=== PATIENT | male | born 1980 | race Caucasian/White ===

== ENCOUNTER 2017-01-27 08:50 | Emergency (ER) | payer OTHER ==
[~2017-01-27] VITALS: Ht 182.9 cm; Wt 113.4 kg
[2017-01-27] MEDS ORDERED: IV NORMAL SALINE 1,000ML 1,000 ML IV SCH (09:02)
[2017-01-27] MEDS ORDERED: 0.9 % SODIUM CHLORIDE 10 ML DISP.SYRIN. IV PRN (09:15)
[2017-01-27] MEDS: NITROGLYCERIN SUBLINGUAL 0.4 MG BOTTLE OF 25. SL PRN ×2 (09:26→09:41)
[2017-01-27 09:29] LABS: BASO % 0 % (0-3); EOS # 0.1 x10^3/uL (0.0-0.7); EOS % 1 % (0-3); HEMATOCRIT 45.9 % (39.0-53.0); HEMOGLOBIN 16.3 g/dL (13.0-17.5); LYMPH # 1.6 x10^3/uL (1.0-4.8); LYMPH % 17 % (24-48); MEAN CORPUSCULAR HEMOGLOBIN 32 pg (25-35); MEAN CORPUSCULAR HGB CONC 36 g/dL (31-37); MEAN CORPUSCULAR VOLUME 90 fL (79-100); MONO # 0.6 x10^3/uL (0.0-1.1); MONO % 7 % (0-9); NEUT # 7.1 x10^3uL (1.8-7.7); NEUT % 75 % (31-73); PLATELET COUNT 232 x10^3/uL (140-400); RED BLOOD COUNT 5.13 x10^6/uL (4.30-5.70); RED CELL DISTRIBUTION WIDTH 13.1 % (11.5-14.5); WHITE BLOOD COUNT 9.4 x10^3/uL (4.0-11.0)
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
--- NOTE | 2017-01-27 09:41 | RAD ---
Jeff Maldonado 01/27/2017 Time of exam 0934 hours Indication: Chest pain. No prior studies are available for comparison. Age-indeterminate left-sided posterior sixth and seventh rib fractures are noted. No infiltrates are seen. There is no effusion or pneumothorax. Impression: Left posterior sixth and seventh rib fractures, age indeterminate.
[2017-01-27] MEDS ORDERED: MORPHINE SULFATE 2 MG/ML DISP.SYRIN. IV ONE ×2 (09:45→10:15)
[2017-01-27] MEDS ORDERED: ASPIRIN 81 MG TAB.CHEW PO ONE (09:45)
[2017-01-27 09:50] LABS: ALBUMIN 4.2 g/dL (3.4-5.0); ALBUMIN/GLOBULIN RATIO 1.3 (1.0-1.7); CALCIUM 9.3 mg/dL (8.5-10.1); GFR 83.6; MAGNESIUM 2.1 mg/dL (1.8-2.4); POTASSIUM 4.4 mmol/L (3.5-5.1); TOTAL BILIRUBIN 0.4 mg/dL (0.2-1.0); TOTAL PROTEIN 7.5 g/dL (6.4-8.2)
[2017-01-27] MEDS ORDERED: fentaNYL PF 100 MCG/2 ML VIAL IV PRN (10:15)
[2017-01-27] MEDS ORDERED: ONDANSETRON PF 4 MG/2 ML VIAL. IV PRN (10:15)
[2017-01-27] MEDS ORDERED: NITROGLYCERIN SUBLINGUAL 0.4 MG BOTTLE OF 25. SL PRN (10:15)
[2017-01-27] MEDS ORDERED: ACETAMINOPHEN 325 MG TABLET PO PRN (10:15)
[2017-01-27] MEDS ORDERED: IOHEXOL 300 MG/ML 75 ML VIAL. IV ONE (10:30)
--- NOTE | 2017-01-27 10:44 | RAD ---
Indication: Chest pain and elevated d-dimer. Axial imaging through the chest was performed after the administration of intravenous contrast and utilizing the CT angiography protocol. Multiplanar, 3-D and MIP reformations were also performed. No prior studies are available for comparison. Pulmonary arterial opacification is suboptimal. No definite findings to suggest pulmonary emboli are identified in the central pulmonary arteries. The distal pulmonary arteries are limited in evaluation due to suboptimal opacification. The thoracic aorta is normal caliber. No dissection is seen. No pericardial or pleural fluid is identified. No pulmonary infiltrates, nodules or masses are seen. The upper abdomen is unremarkable. Impression: No evidence of central pulmonary embolism. PQRS Compliance Statement: One or more of the following individualized dose reduction techniques were utilized for this examination: 1. Automated exposure control 2. Adjustment of the mA and/or kV according to patient size 3. Use of iterative reconstruction technique
--- NOTE | 2017-01-27 11:03 | EKG ---
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
[2017-01-27 12:57] VITALS: BP 138/79
[2017-01-27 12:59] VITALS: BP 138/79
--- NOTE | 2017-01-27 14:06 | HP ---
ADMIT DATE: 01/27/2017 HISTORY OF PRESENT ILLNESS: The patient is a 36-year-old male patient who came to the Emergency Room complaining of chest pain mostly in the left side of the chest and the infraclavicular area radiating to the left arm. 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 He had similar episodes of pain that is episodic in nature that happens only when he exerts himself. Denied any nausea or vomiting. Denied any shortness of breath, but did complain of diaphoresis. He stated that he has had stress test about 10 years ago that was apparently normal. PAST MEDICAL HISTORY: His past medical history is really unremarkable as he has no history of hypertension, hyperlipidemia, diabetes, or any other risk behavior. PAST SURGICAL HISTORY: Significant for tonsillectomy and adenoidectomy. FAMILY HISTORY: Significant for he has one brother who is older and healthy. Father is still alive at age 67 with hyperlipidemia. Mother at age of 63 because of ovarian cancer. SOCIAL HISTORY: He is and has three biological children and had 6 children from his . He is an ex-smoker and has not smoked any for more than 10 years. He drinks at least 2 beers a day, sometimes drinks a wine or whiskey. Does not use any drugs. 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 REVIEW OF SYSTEMS: The patient denied any blurring of vision, cataract, glaucoma, or macular degeneration. Denied any earache, tinnitus, or sensorineural deafness. Denied any nosebleeds, stuffy nose, or postnasal drip. Denied any sore throat, sore tongue, toothache, hoarseness of voice, or difficulty swallowing. Denied any nausea, vomiting, diarrhea, or constipation. Denied any hematemesis, melena, or hematochezia. Denied any dysuria, frequency, or hematuria. PHYSICAL EXAMINATION: GENERAL: On examining him, he looked well. He was well developed and well nourished; much younger than stated age. No pallor, jaundice, cyanosis, or thyromegaly. No jugular venous distention. No limb edema. VITAL SIGNS: His heart rate was 88, blood pressure 138/79, temperature was 97.8, respiratory rate was 20, and oxygen saturation was 93%. HEENT: Showed normocephalic and atraumatic. NECK: Supple. HEART: Showed normal first and second heart sounds with no gallop, rub, or murmur. CHEST: Clear to auscultation. No crepitation or rhonchi. ABDOMEN: Distended, soft, and nontender. NEUROLOGIC: He was awake, alert, and responding appropriately. Cranial nerves are intact. EXTREMITIES: He moves extremities without difficulty. Ambulates without assistance or assistive devices. LABORATORY DATA: Showed white cell count 9400, hemoglobin 16.3, hematocrit 35.9, MCV 90, and platelet count 252,000 with a manual differential showed 75% polymorphs 70% lymphocytes, and 7% monocytes. Serum sodium was 142, potassium 4.4, chloride 106, bicarbonate 26, anion gap of 10, BUN 18, creatinine 1, and estimated GFR was 84 mL per minute. His glucose was 109, calcium was 9.3, and magnesium 2.1. Total bilirubin, AST, ALT, and alkaline phosphatase were normal. Total CK was 357. However, first troponin is less than 0.017. His total protein was 7.5, albumin was 4.2, and lipase 161. His D-dimer was slightly high at 0.56 mg/dL. DIAGNOSTIC DATA: He has had a chest x-ray showed age indeterminate left-sided procedure of 6 and 7th rib fractures are noted. No infiltrates are seen. No effusion. No pneumothorax. He had a CT scan of the chest with PE protocol for elevated D-dimer that showed pulmonary artery opacification suboptimal. No definitive findings of CT to suggest pulmonary PE emboli. Identified in the central pulmonary arteries and distal pulmonary arteries are limited in evaluation due to suboptimal opacification ____ normal caliber. No dissection is seen. No pericardial or pleural fluid was identified. No pulmonary infiltrates. ____ masses. Abdomen was unremarkable. His EKG showed that he was in sinus rhythm with no evidence of ST segment elevation for myocardial infarction. ASSESSMENT AND PLAN: The patient was admitted with chest pain to rule out myocardial infarction. We will do two more sets of cardiac enzymes and will consult the cardiology team for further evaluation and recommendation. CHRISTOPHER CASILLAS MD DR: PATSY/haylee JOB#: [id number] / [id number]
--- NOTE | 2017-01-27 15:39 | CARD ---
APPROVED REPORT EXAM: Two-dimensional and M-mode echocardiogram with Doppler and color Doppler. Other Information Quality : GoodHR: 84bpm Rhythm : NSR INDICATION Chest Pain 2D DIMENSIONS RVDd3.4 (2.9-3.5cm)Left Atrium(2D)4.0 (1.6-4.0cm) IVSd0.9 (0.7-1.1cm)Aortic Root(2D)3.2 (2.0-3.7cm) LVDd4.3 (3.9-5.9cm)LVOT Diameter2.4 (1.8-2.4cm) PWd1.0 (0.7-1.1cm)LVDs3.1 (2.5-4.0cm) FS (%) 28.5 %SV45.1 ml LVEF(%)55.3 (>50%) Aortic Valve AoV Peak Selwyn.131.8cm/sAoV VTI26.4cm AO Peak GR.7.0mmHgLVOT Peak Selwyn.115.4cm/s LVOT VTI 22.50cmAO Mean GR.4mmHg VEGA (VMAX)3.39pu5QQN (VTI)3.79cm2 Mitral Valve MV E Vmodktgt44.5cm/sMV E Peak Gr.2mmHg MV DECEL [id number] A Khooyptp95.5cm/s MV E Mean Gr.1mmHgE/A Ratio1.4 MV A [id number] Pulmonary Valve PV Peak Mlhsdqjt10.3cm/sPV Peak Grad.4mmHg Tricuspid Valve TR P. Sbthdwtm883vl/sTR Peak Gr.21mmHg Pulmonary Vein S1 Zuvvcciu43.0cm/sD2 Eqyteedh11.8cm/s LEFT VENTRICLE The left ventricle is normal size. There is normal left ventricular wall thickness. The left ventricu lar systolic function is normal and the ejection fraction is within normal range. The Ejection Fracti on is 55-60%. There is normal LV segmental wall motion. The left ventricular diastolic function and f illing is normal for age. RIGHT VENTRICLE The right ventricle is normal size. There is normal right ventricular wall thickness. The right ventr icular systolic function is normal. ATRIA The left atrium size is normal. The right atrium size is normal. The interatrial septum is intact wit h no evidence for an atrial septal defect or patent foramen ovale as noted on 2-D or Doppler imaging. AORTIC VALVE The aortic valve is normal in structure and function. Doppler and Color Flow revealed no significant aortic regurgitation. There is no significant aortic valvular stenosis. MITRAL VALVE There is no evidence of mitral valve prolapse. There is no mitral valve stenosis. Doppler and Color F low revealed trace mitral regurgitation. TRICUSPID VALVE Doppler and Color Flow revealed mild tricuspid regurgitation. The pulmonary artery systolic pressure is estimated at 24 mmHg. There is no pulmonary hypertension. PULMONIC VALVE Doppler and Color Flow revealed no pulmonic valvular regurgitation. There is no pulmonic valvular jana nosis. GREAT VESSELS The aortic root is normal in size. The ascending aorta is normal in size. The pulmonary artery is nor mal. The IVC is normal in size and collapses >50% with inspiration. PERICARDIAL EFFUSION There is no evidence of significant pericardial effusion. Critical Notification Critical Value: No <Conclusion> The left ventricular systolic function is normal and the ejection fraction is within normal range. Th e Ejection Fraction is 55-60%. There is normal LV segmental wall motion.
[2017-01-27 16:28] VITALS: BP 122/89
[2017-01-27 19:17] VITALS: BP 135/85
[2017-01-27] MEDS: METOPROLOL TART IMMED RELEASE 25 MG TABLET PO SCH (19:50)
[2017-01-27] MEDS ORDERED: MORPHINE SULFATE 2 MG/ML DISP.SYRIN. IV PRN (21:00)
[2017-01-27 22:54] VITALS: BP 116/67
[2017-01-28 05:01] VITALS: BP 111/76
[2017-01-28] MEDS: METOPROLOL TART IMMED RELEASE 25 MG TABLET PO SCH (07:51)
[2017-01-28] MEDS ORDERED: ASPIRIN 81 MG TAB.CHEW PO SCH (09:00)
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
[2017-01-28 12:15] VITALS: BP 115/73
--- NOTE | 2017-01-28 15:20 | RAD ---
Exam performed: Nuclear medicine ventilation/perfusion scan. Date of Service: 01/28/17. A chest x-ray performed on 01/27/17 was also reviewed. Clinical Indication: Shortness of breath today. Discussion: Patient was administered 20.0 mCi of xenon-133 and images of the chest were obtained via the gamma camera during inspiration, equilibrium and washout phase. There is symmetric distribution of radiotracer throughout both lungs with symmetric excretion on washout images. Patient was also given 5.5 mCi of technetium 99 MAA and perfusion images of the chest are obtained in various projections. There is symmetric distribution of radiotracer without any photopenic area. No matched or mismatched abnormalities detected. Impression: 1. According to the PIOPED criteria, the study is negative for pulmonary embolism.
[2017-01-28] MEDS ORDERED: ASPI-630 PO (16:00)
--- NOTE | 2017-01-28 20:29 | DS ---
DATE OF DISCHARGE: 01/28/2017 HOSPITAL COURSE: The patient is a 36-year-old male patient who was admitted with a complaint of chest pain, mostly in the left side of the chest at the infraclavicular area radiating to the left arm. 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 While running he developed anterior left chest wall pain that radiates to his left arm. He has similar episodes of pain that is episodic in nature that happens only when he exerts himself. He denied any nausea, vomiting. He denied any shortness of breath or diaphoresis. He had a stress test done about 10 years ago that was apparently normal. PAST MEDICAL HISTORY: Unremarkable. PAST SURGICAL HISTORY: Significant for tonsillectomy and adenoidectomy. He was basically admitted and had 3 sets of cardiac enzymes that were all negative. He has had an echocardiogram which showed left ventricular systolic function is normal with ejection fraction that is within normal range. The ejection fraction is 55-60%. There is normal left ventricular segmental wall motion. His D-dimer was slightly elevated, so we did a CT scan of the chest with PE protocol, which showed that the pulmonary arterial opacification is suboptimal. No definite finding to suggest pulmonary emboli are identified in the central pulmonary arteries. The distal pulmonary arteries are limited in evaluation due to suboptimal opacification. The thoracic aorta is normal in caliber. No dissection is seen. No pericardial and pleural fluid is identified. No pulmonary infiltrates, nodules or masses are seen and the upper abdomen is unremarkable. Because of the suboptimal nature of the pulmonary opacification we did pulmonary ventilation perfusion scan, which basically showed that there is symmetric distribution of radiotracer throughout both lungs with symmetric excretion or wash-out images and there is symmetric distribution of radiotracer without any photopenic area, no matched or mismatched abnormalities detected. PHYSICAL EXAMINATION: GENERAL: When I examined him this afternoon, he looked well and was clearly in no apparent distress. No pallor, jaundice, cyanosis or thyromegaly. No jugular venous distention. No limb edema. VITAL SIGNS: His heart rate was 71, blood pressure was 115/73, temperature was 97.7, respiratory rate was 18 and oxygen saturation was 96%. The rest of clinical examination is unremarkable, has not really changed. PLAN: To transfer him to [facility] to do the stress test tomorrow, and if all is well, he can be discharged home from there. CHRISTOPHER CASILLAS MD DR: Viky JOB#: [id number] / [id number]
== END 2017-01-28 17:37 ==
LOC: ER 08:50 → ICU 10:08
PROVIDERS: ADMIT Internal Medicine; ATTEND Internal Medicine
DX: R07.89 Other chest pain (principal); I49.3 Ventricular premature depolarization; I49.1 Atrial premature depolarization; E78.5 Hyperlipidemia, unspecified; E78.1 Pure hyperglyceridemia; I10 Essential (primary) hypertension; Z87.891 Personal history of nicotine dependence; Z80.41 Family history of malignant neoplasm of ovary
CPT/HCPCS: 36415; 71010; 71275; 78582; 80053; 80061; 82553; 83690; 83735; 83880; 84443; 84484; 85027; 85379; 87641; 93005; 93306; 96361; 96374; 96375; 96376; 99285; A9540; A9558; G0378; J2270; J3010; J7030; Q9967; G0379